=== PATIENT | male | born 1990 | race American Indian/Alaskan Native ===

== ENCOUNTER 2017-07-11 17:19 | Emergency (ER) | payer BC ==
[2017-07-11 18:49] VITALS: BP 125/90
--- NOTE | 2017-07-11 19:26 | Emergency Department Report ---
ED Anxiety HPI - General Chief Complaint: Anxiety Stated Complaint: PANIC ATTACK Time Seen by Provider: 07/11/17 19:17 Source: patient Mode of arrival: Ambulatory - History of Present Illness Initial Comments: Patient here complaining of anxiety and states that he had a panic attack today. He states that he was rushing to get ready for work today and that he felt overwhelmed. Patient is not taking any medication for anxiety. He denies any pain. Denies any chest pain or shortness of breath. He said he hasn't had an anxiety attack for a while and he is not in a specialist at present. Patient really does not have a primary care physician. He has a history of depression and insomnia. MD Complaint: anxiety -: This evening Symptoms: other (anxiety) Place: home Previous History of Same: Yes Severity: moderate Quality: improving, similar to prior episodes Provoking factors: emotional stress Improves With: rest Worsens With: nothing Associated symptoms: denies: chest pain, shortness of breath, palpitations, diaphoresis, denies other symptoms, confusion, cough, fever/chills, headaches, anorexia, malaise, nausea/vomiting, rash, seizure, syncope, weakness - Related Data Home Medications: Home Medications Medication Instructions Recorded Confirmed Last Taken ARIPiprazole [Abilify] 5 mg PO DAILY 02/03/14 08/10/14 02/01/14 Sertraline [Zoloft] 50 mg PO QDAY 02/03/14 08/10/14 02/01/14 traZODone [Desyrel] 50 mg PO QHS 02/03/14 08/10/14 02/01/14 Previous Rx's Medication Instructions Recorded Last Taken Type Carey Burroughs [Connie Burroughs] 75 mg PO Q12H #30 tablet 02/04/14 Unknown Rx HYDROcodone/APAP 10-325 [[place] 1 each PO Q6HR PRN #20 tablet 02/04/14 Unknown Rx 10-325 mg TAB] hydrOXYzine PAMOATE [Vistaril] 50 mg PO Q8HR PRN #12 capsule 07/11/17 Unknown Rx Allergies/Adverse Reactions: Allergies Allergy/AdvReac Type Severity Reaction Status Date / Time bupropion HCl Allergy Seizure Verified 02/03/14 22:02 [From Wellbutrin] ED Review of Systems ROS: Stated complaint: PANIC ATTACK Other details as noted in HPI Comment: All other systems reviewed and negative Constitutional: no symptoms reported Eyes: denies: eye pain, vision change ENT: denies: epistaxis Respiratory: no symptoms reported Cardiovascular: denies: chest pain, palpitations, dyspnea on exertion, edema, syncope, paroxysmal nocturnal dyspnea Gastrointestinal: denies: abdominal pain, nausea, diarrhea Musculoskeletal: denies: back pain, joint swelling, arthralgia, myalgia Skin: denies: rash Neurological: denies: headache, weakness, numbness, paresthesias, confusion, abnormal gait, vertigo Psychiatric: anxiety. denies: depression, auditory hallucinations, visual hallucinations, homicidal thoughts, suicidal thoughts ED Past Medical Hx - Past Medical History Previous Medical History?: Yes Hx Psychiatric Treatment: Yes (depression insomnia, anxiety) - Surgical History Past Surgical History?: Yes Additional Surgical History: urethra stretching - Family History Family history: no significant - Social History Smoking Status: Never Smoker Substance Use Type: Alcohol, Non Opiate Pain - Medications Home Medications: Home Medications Medication Instructions Recorded Confirmed Last Taken Type ARIPiprazole [Abilify] 5 mg PO DAILY 02/03/14 08/10/14 02/01/14 History Sertraline [Zoloft] 50 mg PO QDAY 02/03/14 08/10/14 02/01/14 History traZODone [Desyrel] 50 mg PO QHS 02/03/14 08/10/14 02/01/[address] [Voltaren Dr] 75 mg PO Q12H #30 tablet 02/04/14 08/10/14 Unknown Rx HYDROcodone/APAP 10-325 [[place] 1 each PO Q6HR PRN #20 tablet 02/04/14 08/10/14 Unknown Rx 10-325 mg TAB] hydrOXYzine PAMOATE [Vistaril] 50 mg PO Q8HR PRN #12 capsule 07/11/17 Unknown Rx ED Physical Exam - General Limitations: No Limitations General appearance: alert, in no apparent distress - Head Head exam: Present: atraumatic, normocephalic, normal inspection - Eye Eye exam: Present: normal appearance, PERRL, EOMI. Absent: conjunctival injection, nystagmus, periorbital swelling, periorbital tenderness Pupils: Present: normal accommodation - ENT ENT exam: Present: normal exam, normal orophraynx, mucous membranes moist, TM's normal bilaterally, normal external ear exam - Neck Neck exam: Present: normal inspection, full ROM. Absent: tenderness, meningismus, lymphadenopathy, thyromegaly - Respiratory Respiratory exam: Present: normal lung sounds bilaterally. Absent: respiratory distress, wheezes, rales, rhonchi, stridor, chest wall tenderness, accessory muscle use, decreased breath sounds, prolonged expiratory - Cardiovascular Cardiovascular Exam: Present: regular rate, normal rhythm, normal heart sounds. Absent: systolic murmur, diastolic murmur - GI/Abdominal GI/Abdominal exam: Present: soft, normal bowel sounds. Absent: distended, tenderness, guarding, rebound, rigid, organomegaly, bruit, pulsatile mass - Extremities Exam Extremities exam: Present: normal inspection, full ROM, normal capillary refill , other (no clubbing, cyanosis or edema. +2 pulses in all extremities and no neurovascular compromise.). Absent: tenderness, pedal edema, joint swelling, calf tenderness - Back Exam Back exam: Present: normal inspection, full ROM. Absent: tenderness, CVA tenderness (R), CVA tenderness (L), muscle spasm, paraspinal tenderness, vertebral tenderness, rash noted - Neurological Exam Neurological exam: Present: alert, altered, normal gait, reflexes normal. Absent: motor sensory deficit - Psychiatric Psychiatric exam: Present: normal affect, normal mood. Absent: depressed, agitated, anxious, flat affect, manic, homicidal ideation, suicidal ideation - Skin Skin exam: Present: warm, dry, intact, normal color. Absent: rash ED Course Vital Signs 07/11/17 18:43 Temperature 98.4 F Pulse Rate 69 Respiratory 20 Rate Blood Pressure 125/90 O2 Sat by Pulse 100 Oximetry - Reevaluation(s) Reevaluation #1: 07/11/17 19:45 Is stable and that he is feeling better now. ED Medical Decision Making - Medical Decision Making ED course: The patient that he will need to follow-up with primary care physician and specialist regarding anxiety. I discussed with them that I'll put him on Vistaril for couple days but he needs to have a well-child check done before starting the lady medication. Findings patient is stable he's had is feeling much better and he is in no acute distress at present. He does not exhibit any tremors to her extremities. Vital signs are stable. I discussed with him that he needs to follow up with [facility] which is acute community clinic to call tomorrow to schedule an appointment. Patient voiced understanding of diagnoses and treatment plan and discharged home with prescription for Vistaril. Critical care attestation.: If time is entered above; I have spent that time in minutes in the direct care of this critically ill patient, excluding procedure time. 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 Prescriptions: hydrOXYzine PAMOATE [Vistaril] 50 mg PO Q8HR PRN #12 capsule PRN Reason: Anxiety Referrals: [facility] [Outside] - 07/12/17 Forms: Work/School Release Form(ED)
== END 2017-07-11 19:59 | disposition home or self-care (01) ==
LOC: ED 17:19
DX: F41.9 Anxiety disorder, unspecified (principal); F32.9 Major depressive disorder, single episode, unspecified; Z88.8 Allergy status to other drugs, medicaments and biological substances
CPT/HCPCS: 99282

== ENCOUNTER 2017-11-04 16:59 | Emergency (ER) | payer BC ==
[2017-11-04 17:10] VITALS: BP 131/86
--- NOTE | 2017-11-04 20:35 | Emergency Department Report ---
Minor Respiratory - HPI Chief Complaint: Sore Throat Stated Complaint: FLU/COLD SX Time Seen by Provider: 11/04/17 19:54 Duration: 1 week Pain Location: Throat Severity: severe Minor Respiratory: Yes Rhinorrhea (ingestion), Yes Sore Throat, Yes Able to Tolerate Fluids, Yes Cough, Yes Sick Contacts, No Ear Pain, No Hemoptysis, No Chest Pain, No Shortness of Breath, No Fever Other History: This is 27-year-old male here complaining of sore throat and headache 3 days he reports he has cough and nasal congestion and runny nose with plugged ear sensation over the last 1-1/2 week. Denies any drooling or difficulty swallowing. Pain is 7 out of 10 to his throat worse with swallowing. Taking [id number] medication which helps a little. Headache is Leopoldo attendant come and goes but he doesn't have any headache at present. Denies any urinary burning frequency or urgency. Denies any back pain. Denies any neck pain or stiffness. Denies any fever or chills. Denies any shortness of breath or chest pain ED Review of Systems ROS: Stated complaint: FLU/COLD SX Other details as noted in HPI Comment: All other systems reviewed and negative Constitutional: chills, fever ENT: throat pain, congestion. denies: ear pain, dental pain, hearing loss Respiratory: cough. denies: orthopnea, shortness of breath, SOB with exertion, SOB at rest, stridor, wheezing Cardiovascular: denies: chest pain, palpitations, dyspnea on exertion, edema, syncope, paroxysmal nocturnal dyspnea Gastrointestinal: denies: abdominal pain, nausea, vomiting, diarrhea, constipation Genitourinary: denies: urgency, dysuria, frequency, hematuria, discharge, testicular pain, testicular mass Musculoskeletal: denies: back pain, joint swelling, arthralgia, myalgia Skin: denies: rash Neurological: headache. denies: numbness, paresthesias, confusion, abnormal gait, vertigo ED Past Medical Hx - Past Medical History Previous Medical History?: Yes Hx Psychiatric Treatment: Yes (depression insomnia, anxiety) - Surgical History Past Surgical History?: Yes Additional Surgical History: urethra stretching - Family History Family history: no significant - Social History Smoking Status: Never Smoker Substance Use Type: Alcohol - Medications Home Medications: Home Medications Medication Instructions Recorded Confirmed Last Taken Type ARIPiprazole [Abilify] 5 mg PO DAILY 02/03/14 08/10/14 02/01/14 History Sertraline [Zoloft] 50 mg PO QDAY 02/03/14 08/10/14 02/01/14 History traZODone [Desyrel] 50 mg PO QHS 02/03/14 08/10/14 02/01/[address] [Voltaren Dr] 75 mg PO Q12H #30 tablet 02/04/14 08/10/14 Unknown Rx HYDROcodone/APAP 10-325 [[place] 1 each PO Q6HR PRN #20 tablet 02/04/14 08/10/14 Unknown Rx 10-325 mg TAB] hydrOXYzine PAMOATE [Vistaril] 50 mg PO Q8HR PRN #12 capsule 07/11/17 Unknown Rx Amoxicillin/K Clav Tab [Augmentin 1 tab PO Q12HR 10 Days #20 tab 11/04/17 Unknown Rx 875 mg] Cetirizine HCl [ZyrTEC] 10 mg PO QAM #10 capsule 11/04/17 Unknown Rx Fluticasone [Flonase] 1 spray NS QDAY 10 Days #1 bottle 11/04/17 Unknown Rx Ibuprofen [Motrin] 600 mg PO Q6H PRN #12 tablet 11/04/17 Unknown Rx guaiFENesin/CODEINE [Robitussin AC] 10 ml PO Q12H PRN 5 Days #100 ml 11/04/17 Unknown Rx Minor Respiratory Exam - Exam General: Vital signs noted. No distress. Alert and acting appropriately. This is a 27-year-old male well-nourished well-developed in no acute distress HEENT: Yes Moist Mucous Membranes, Yes Rhinorrhea (nasal congestion with erythema), Yes Frontal Tenderness, Yes Maxillary Tenderness, No Pharyngeal Erythema, No Pharyngeal Exudates, No Conjuctival Injection Ear: Neither TM Bulge (bilateral TM congested), Neither TM Erythema, Neither EAC Pain, Neither EAC Discharge Neck: Yes Supple (normal range of motion), No Adenopathy Lungs: Yes Good Air Exchange, Yes Cough (dry cough), No Wheezes, No Ronchi, No Stridor, No Labored Respirations, No Retractions, No Use of Accessory Muscles, No Other Abnormal Lung Sounds Heart: Yes Regular (S1, S2. Regular rate rhythm negative murmur), No Murmur Abdomen: Yes Normal Bowel Sounds (normal bowel sounds in all quadrants), No Tenderness (nontender to palpate in all quadrants), No Peritoneal Signs Skin: No Rash, No Edema Neurologic: Alert and oriented, no deficits. Alert and oriented 3, GCS of 15, speech is clear and fluid. Gait is normal. Musculoskeletal: Unremarkable. Musculoskeletal/extremity: No clubbing, cyanosis or edema. +2 pulses plus extremities. +5 strength in all extremities and no neurovascular compromise. ED Course Vital Signs 11/04/17 17:04 Temperature 99.6 F Pulse Rate 102 H Respiratory 16 Rate Blood Pressure 131/86 O2 Sat by Pulse 97 Oximetry Vital Signs 11/04/17 11/04/17 17:04 21:12 Temperature 99.6 F 99.1 F Pulse Rate 102 H 99 H Respiratory 16 Rate Blood Pressure 131/86 O2 Sat by Pulse 97 99 Oximetry - Reevaluation(s) Reevaluation #1: 11/04/17 22:30 Patient received ibuprofen 800 mg emergency room and was orally challenged and tolerated well. Vital signs are stable and temperature is better. 11/04/17 22:32 ED Medical Decision Making - Medical Decision Making ED course: Patient here reports cold symptoms with headache and sore throat. Physical findings for normal oropharynx, dry cough side as tenderness and nasal and bilateral TM congestion. Patient is neurologically intact. I discussed the patient that he has acute sinusitis which is bacterial in nature, fever in adults, cough and sore throat from postnasal drip. I discussed treatment, diagnosis and need for follow-up with primary care physician and he voiced understanding. Patient also informed that he needs to drink at least 2-3 L of fluid per day to include water, Gatorade and orange juice to prevent dehydration Patient discharged home. He does have access to primary care physician. Discharged home a prescription for Zyrtec, Flonase, Augmentin and guaifenesin with codeine Critical care attestation.: If time is entered above; I have spent that time in minutes in the direct care of this critically ill patient, excluding procedure time. ED Disposition Clinical Impression: Fever chills, Acute bacterial rhinosinusitis, Cough in adult Pharyngitis Qualifiers: Pharyngitis/tonsillitis etiology: unspecified etiology Qualified Code(s): J02.9 - Acute pharyngitis, unspecified Disposition: DC-01 TO HOME OR SELFCARE Is pt being admited?: No Does the pt Need Aspirin: No Condition: Stable Instructions: Acute Bacterial Rhinosinusitis (ED), Acute Cough (ED), Fever in Adults (ED), Pharyngitis (ED) Additional Instructions: Please increase her fluid intake to 2-3 L of water, oriented use and Gatorade daily to prevent dehydration and keep fever down. Follow up Primary care physician in 2-3 days and if he do not have one he can follow-up at [facility] Please do not drive or operate heavy machinery while taking cough medicine as this medication causes drowsiness Prescriptions: Amoxicillin/K Clav Tab [Augmentin 875 mg] 1 tab PO Q12HR 10 Days #20 tab Cetirizine HCl [ZyrTEC] 10 mg PO QAM #10 capsule Fluticasone [Flonase] 1 spray NS QDAY 10 Days #1 bottle guaiFENesin/CODEINE [Robitussin AC] 10 ml PO Q12H PRN 5 Days #100 ml PRN Reason: Cough Ibuprofen [Motrin] 600 mg PO Q6H PRN #12 tablet PRN Reason: FEVER/SORE throat Referrals: [facility] [Outside] - 2-3 Days EMILE KLEIN JR, MD [Staff Physician] - 2-3 Days Forms: Accompanied Note, Work/School Release Form(ED)
[2017-11-04] MEDS ORDERED: MOTRIN PO ONE (20:37)
== END 2017-11-04 22:50 | disposition home or self-care (01) ==
LOC: ED 16:59
DX: J01.80 Other acute sinusitis (principal); B96.89 Other specified bacterial agents as the cause of diseases classified elsewhere; R50.9 Fever, unspecified; R05 Cough; J02.9 Acute pharyngitis, unspecified; F32.9 Major depressive disorder, single episode, unspecified; F41.9 Anxiety disorder, unspecified; Z88.8 Allergy status to other drugs, medicaments and biological substances
CPT/HCPCS: 99282